=== PATIENT | female | born 1935 | race Caucasian/White ===

== ENCOUNTER 2019-10-21 13:34 | Outpatient (RCR) | payer MEDICARE, SELFPAY ==
[2019-09-23 13:53] LABS: INR 2.3; Prothrombin Time 24.5 Seconds (11.1-14.7)
[2019-10-21 14:13] LABS: INR 2.1
== END 2019-12-22 23:59 | disposition home or self-care (01) ==
LOC: ANHLAB 13:34
PROVIDERS: PCP Emergency Medicine; Visit Provider Emergency Medicine
DX: R79.1 Abnormal coagulation profile (principal)
CPT/HCPCS: 36415; 85610; 99212; G0463

== ENCOUNTER 2020-10-02 09:52 | Outpatient (CLI) | payer MEDICARE, SELFPAY ==
[2020-10-02 10:52] LABS: Alanine Aminotransferase 17 U/L (4-35); Albumin Level 4.2 g/dL (3.5-5.1); Alkaline Phosphatase 54 U/L (38-126); Anion Gap 4 mmol/L (8-16); Aspartate Amino Transferase 32 U/L (14-36); Bilirubin,Total 0.7 mg/dL (0.2-1.3); Blood Urea Nitrogen 12 mg/dL (7-17); Calcium 9.7 mg/dL (8.4-10.2); Carbon Dioxide 34 mmol/L (22-30); Chloride 95 mmol/L (98-107); Cholesterol 187 mg/dL (0-200); Estimated Glomerular Filt Rate 60; Glucose 97 mg/dL (65-105); HDL Direct 66 mg/dL; Potassium 4.4 mmol/L (3.4-5.0); Sodium 133 mmol/L (137-145); Triglycerides 58 mg/dL (<150)
[2020-10-02 11:03] LABS: LDL Cholesterol Direct 101 mg/dL
[2020-10-10 00:01] LABS: Vitamin D 1,25 (OH)2 Total 33 pg/mL (18-72); Vitamin D2 1,25 (OH)2 <8 pg/mL; Vitamin D3 1,25 (OH)2 33 pg/mL
== END 2020-10-02 09:53 | disposition home or self-care (01) ==
LOC: ANHLAB 09:54
PROVIDERS: PCP Emergency Medicine; Visit Provider Emergency Medicine
DX: E55.9 Vitamin D deficiency, unspecified (principal); E78.5 Hyperlipidemia, unspecified
CPT/HCPCS: 36415; 80053; 80061; 82652